=== PATIENT | male | born 1970 | race Caucasian/White ===

== ENCOUNTER 2016-09-25 09:07 | Emergency (ER) | payer OTHER ==
[~2016-09-25] VITALS: Ht 182.9 cm; Wt 90.7 kg
--- NOTE | ~2016-09-25 | EKG ---
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 Compared to ECG 03/11/2016 09:22:48 Atrial flutter is no longer present Electronically Signed On 09-26-2016 11:01:37 CDT by Milad Trujillo [email or web address] <ELECTRONICALLY SIGNED> By: Milad Trujillo MD 09/26/16 1101 1152 1152 MD KEIKO Espinoza
--- NOTE | ~2016-09-25 | EKG ---
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: KKREISEL : 1970 Requested By: Farrukh Martinez Order Number: [id number] MD: Milad Trujillo Measurements Intervals [place] Rate: 158 P: 0 ID: 198 QRS: 26 QRSD: 159 T: -83 QT: 354 QTc: 574 Interpretive Statements Atrial Flutter Consider left atrial enlargement Abnormal T, consider ischemia, inferior leads Compared to ECG 03/11/2016 09:22:48 T-wave abnormality now present Atrial Flutter is present Electronically Signed On 09-26-2016 11:00:45 CDT by Milad Trujillo [email or web address] <ELECTRONICALLY SIGNED> By: Milad Trujillo MD 09/26/16 1100 9 9 Milad Trujillo MD /BEL
[~2016-09-25 09:07] MED LIST: CARVEDILOL12.5 MG PO; CARVEDILOL6.25 MG PO; LANOXIN 0.250.25 M1 PO; LISINOPRIL2.5 MG PO; PACERONE 200 M200 M1 PO; PRADAXA150 MG PO; PROTONIX 20 MG20 M1 PO; PROTONIX 20 MG20 MG PO
[2016-09-25 09:33] LABS: BASOPHILS 0.8 % (0.0-2.0); EOSINOPHILS 2.5 % (0.0-3.0); HEMATOCRIT 48.3 % (42.0-52.0); LYMPHOCYTES 32.5 % (24.0-44.0); MCH 33.7 pg (26.0-34.0); MCHC 35.1 g/dL (28.0-37.0); MCV 95.9 fL (80.0-100.0); PLATELET COUNT 220 thou/uL (150-400); POLYS 56.2 % (36.0-66.0); RBC 5.04 mil/uL (4.50-6.00); RDW 13.3 % (10.5-14.5); WBC 7.1 thou/uL (4.0-11.0)
[2016-09-25 09:36] LABS: MANUAL DIFF NO
[2016-09-25 09:46] LABS: CALCIUM 8.7 mg/dL (8.5-10.1); CREATININE 1.2 mg/dL (0.7-1.3); POTASSIUM 4.6 mmol/L (3.5-5.1)
[2016-09-25 10:00] LABS: CK-MB MASS 1.7 ng/mL (<0.5-3.6); TOTAL BILIRUBIN 0.7 mg/dL (<0.1-1.0); TOTAL PROTEIN 7.3 g/dL (6.4-8.2); TROPONIN-I 0.05 ng/mL (<0.04-0.07)
[2016-09-25] MEDS ORDERED: PRADAXA150 MG PO (12:42)
== END 2016-09-25 13:45 | disposition home or self-care (01) ==
LOC: ER 09:07
PROVIDERS: Physician Assistant
DX: I48.92 Unspecified atrial flutter (principal); I48.91 Unspecified atrial fibrillation; F17.220 Nicotine dependence, chewing tobacco, uncomplicated

== ENCOUNTER 2016-10-16 12:40 | Emergency (ER) | payer OTHER ==
[~2016-10-16] VITALS: Ht 182.9 cm; Wt 90.7 kg
--- NOTE | ~2016-10-16 | EKG ---
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
[2016-10-16 13:53] LABS: ABSOLUTE NEUTROPHILS 3.9 thou/uL (1.4-8.2); BASOPHILS 0.8 % (0.0-2.0); EOSINOPHILS 8.3 % (0.0-3.0); HEMATOCRIT 47.7 % (42.0-52.0); HEMOGLOBIN 16.4 gm/dL (14.0-18.0); LYMPHOCYTES 26.6 % (24.0-44.0); MCH 33.3 pg (26.0-34.0); MCHC 34.4 g/dL (28.0-37.0); MCV 96.7 fL (80.0-100.0); MONOCYTES 9.3 % (1.0-8.0); PLATELET COUNT 170 thou/uL (150-400); RBC 4.93 mil/uL (4.50-6.00); RDW 13.4 % (10.5-14.5); WBC 7.1 thou/uL (4.0-11.0)
[2016-10-16 13:58] LABS: MANUAL DIFF NO
[2016-10-16 14:02] LABS: ANION GAP 10 mmol/L (7-16); BUN 13 mg/dL (7-18); CALCIUM 8.3 mg/dL (8.5-10.1); CHLORIDE 104 mmol/L (98-107); CO2 23 mmol/L (21-32); CREATININE 1.1 mg/dL (0.7-1.3); GLUCOSE 91 mg/dL (74-106); POTASSIUM 4.1 mmol/L (3.5-5.1); SODIUM 137 mmol/L (136-145)
[2016-10-16 14:09] LABS: ALBUMIN 3.9 g/dL (3.4-5.0); ALKALINE PHOSPHATASE 40 U/L (46-116); SGOT 37 U/L (15-37); SGPT 109 U/L (30-65); TOTAL BILIRUBIN 0.8 mg/dL (<0.1-1.0); TROPONIN-I < 0.04 ng/mL (<0.04-0.07)
[2016-10-16] MEDS ORDERED: DIGOXIN250 MCG PO (15:25)
== END 2016-10-16 15:57 | disposition home or self-care (01) ==
LOC: ER 12:40
PROVIDERS: Physician Assistant
DX: I48.91 Unspecified atrial fibrillation (principal); F17.220 Nicotine dependence, chewing tobacco, uncomplicated